=== PATIENT | female | born 1970 | race American Indian/Alaskan Native ===

== ENCOUNTER 2016-06-14 07:23 | Outpatient (CLI) | payer OTHER ==
--- NOTE | 2016-06-14 12:03 | Mammography Report ---
BILATERAL DIGITAL SCREENING MAMMOGRAM with CAD: 06/14/16 07:23:00 CLINICAL: Routine screening. COMPARISON:05/22/15 FINDINGS: The breasts are heterogeneously dense, which may obscure small masses. A left asymmetry on the CC view requires additional imaging.No architectural distortion or suspicious calcifications. IMPRESSION: Left asymmetry requiring further workup. BI-RADS CATEGORY: 0 -- Additional Imaging Evaluation Required RECOMMENDATION: Recall for left lateralmedial and spot compression CC views and left breast ultrasound if needed. ACR BI-RADS MAMMOGRAPHIC CODES: 0 = Needs additional imaging evaluation; 1 = Negative; 2 = Benign; 3 = Probably benign; 4 = Suspicious; 5 = Malignant; 6 = Known biopsy-proven malignancy COMMENT: 1. Dense breast tissue, i.e., adenosis, fibrocystic changes, etc., may obscure an underlying neoplasm. 2. Approximately 10% of cancers are not detected with mammography. 3. A negative mammography report should not delay biopsy if a clinically suspicious mass is present. COMMENT: Patient follow-up letters are generated via our [employer] application.
== END 2016-06-14 07:24 | disposition home or self-care (01) ==
LOC: MAMMO 07:23
PROVIDERS: ATTEND Obstetrics & Gynecology
DX: Z12.31 Encounter for screening mammogram for malignant neoplasm of breast (principal)
CPT/HCPCS: 77067; G0202

== ENCOUNTER 2016-06-27 10:52 | Outpatient (CLI) | payer OTHER ==
--- NOTE | 2016-06-27 11:57 | Mammography Report ---
Spot compression magnification of 4 mm density in left breast seen only on CC view with subsequent sonographic examination: Findings: There is persistence of density noted in spot compression magnification view even though appears to be very faint. On sonographic examination no cystic or solid masses identified. Impression: Probably benign. Six-month followup mammogram recommended. BI-RADS CATEGORY: 3 = Probably benign BI-RADS CATEGORY: 3 = Probably benign ACR BI-RADS MAMMOGRAPHIC CODES: 0 = Needs additional imaging evaluation; 1 = Negative; 2 = Benign; 3 = Probably benign; 4 = Suspicious; 5 = Malignant; 6 = Known biopsy-proven malignancy COMMENT: 1. Dense breast tissue, i.e., adenosis, fibrocystic changes, etc., may obscure an underlying neoplasm. 2. Approximately 10% of cancers are not detected with mammography. 3. A negative mammography report should not delay biopsy if a clinically suspicious mass is present.
== END 2016-06-27 10:53 | disposition home or self-care (01) ==
LOC: MAMMO 10:52
PROVIDERS: ATTEND Obstetrics & Gynecology
DX: R92.8 Other abnormal and inconclusive findings on diagnostic imaging of breast (principal)
CPT/HCPCS: 76642; G0206

== ENCOUNTER 2016-12-05 07:42 | Outpatient (CLI) | payer OTHER ==
--- NOTE | 2016-12-05 08:37 | Mammography Report ---
Left mammogram: Routine views are compared to prior examinations in June 2016. The left asymmetry that was initially identified on the lateral projection on June 14 I do not see on the June 27 exam nor do I see on the current study. No suspicious findings. Impression: No abnormal findings. Recommendation: Annual mammogram followup. BI-RADS CATEGORY: 1 = Negative ACR BI-RADS MAMMOGRAPHIC CODES: 0 = Needs additional imaging evaluation; 1 = Negative; 2 = Benign; 3 = Probably benign; 4 = Suspicious; 5 = Malignant; 6 = Known biopsy-proven malignancy COMMENT: 1. Dense breast tissue, i.e., adenosis, fibrocystic changes, etc., may obscure an underlying neoplasm. 2. Approximately 10% of cancers are not detected with mammography. 3. A negative mammography report should not delay biopsy if a clinically suspicious mass is present.
== END 2016-12-05 07:43 | disposition home or self-care (01) ==
LOC: MAMMO 07:42
PROVIDERS: ATTEND Obstetrics & Gynecology
DX: R92.8 Other abnormal and inconclusive findings on diagnostic imaging of breast (principal)
CPT/HCPCS: G0206-LT